=== PATIENT | female | born 1975 | race Caucasian/White ===

== ENCOUNTER 2021-03-23 17:07 | Emergency (ER) | payer BC ==
[~2021-03-23 17:07] MED LIST: FLAGYL500 MG PO; PROBIOTIC ACID1 EACH PO; ZOFRAN4 MG PO
[2021-03-23 19:26] LABS: HEMOGLOBIN 13.5 gm/dl (12.3-15.3); RED BLOOD COUNT 4.3 M/UL (4.00-5.10); WHITE BLOOD COUNT 8.6 K/UL (4.5-11.0)
[2021-03-23 19:44] LABS: BUN/CREATININE RATIO 13 (0-10)
== END 2021-03-23 22:35 | disposition home or self-care (01) ==
LOC: ER1 17:07
PROVIDERS: Physician Assistant Medical
DX: R10.31 Right lower quadrant pain (principal); J45.909 Unspecified asthma, uncomplicated; Z90.49 Acquired absence of other specified parts of digestive tract; Z90.710 Acquired absence of both cervix and uterus
CPT/HCPCS: 80053; 81001; 85025; 85652; 86140; 99284; Q9967

== ENCOUNTER → 2021-07-09 | Outpatient (CLI) | payer BC | LOC: HEART 5 15:19 | DX: R00.2 Palpitations (principal) ==